=== PATIENT | female | born 1970 | race Caucasian/White ===

== ENCOUNTER 2018-07-30 10:54 | Day surgery (SDC) | payer BC ==
[~2018-07-30 10:54] MED LIST: Lactated Ringers 1,000 ML IV SCH; Lidocaine 4% 5 ML Amp ONE; Sodium Chloride 0.9% 10 ML Syringe FLUSH PRN
[2018-07-30] MEDS ORDERED: fentaNYL 100 MCG/2 ML SDV ONE (12:10)
[2018-07-30] MEDS ORDERED: Midazolam 1 MG/ML 2 ML SDV ONE (12:10)
[2018-07-30] MEDS ORDERED: Propofol 200 MG/20 ML SDV ONE (12:10)
--- NOTE | 2018-07-30 13:26 | OR ---
PREOPERATIVE DIAGNOSES: 1. Dysphagia. 2. Abdominal pain. POSTOPERATIVE DIAGNOSES: 1. Gastritis with mild petechial hemorrhage. 2. Mild gastroesophageal reflux disease without hiatal hernia or stenosis. PROCEDURE PROPOSED: Upper gastrointestinal panendoscopy with antral biopsies. INDICATIONS: This is a 47-year-old female bothered with some dysphagia, but mainly upper throat dysphagia and some abdominal pain. It was felt that she should be gastroscoped to rule out significant pathology. TECHNIQUE: The patient was brought to the endoscopy suite and placed in left lateral decubitus position. The intraoral bite block was put in position, and she was sedated per ORAL HYGIENIST with propofol. The flexible video gastroscope was then passed transorally and under visualization as well into the duodenum. The distal duodenum was normal, but the duodenal bulb revealed some duodenitis. The antrum also revealed some moderate inflammation with some petechial hemorrhage. There was no yoana ulceration, however. The body of the stomach looked quite normal and healthy. A couple of antral biopsies were taken to rule out H. pylori. The GE junction did not reveal any evidence of hiatal hernia or Schatzki's ring, but she did have some mild GERD present right at the junction itself without any signs of Tay esophagus and the remainder of esophagus was normal. The scope was then withdrawn. The patient tolerated the procedure well. FINAL IMPRESSION: 1. Mild gastroesophageal reflux disease without Tay's or stenosis. 2. Antritis with petechial hemorrhage without ulcer. PLAN: I feel the patient needs to be on Protonix 40 mg daily. She needs to avoid caffeine, alcohol, ibuprofen, aspirin, and I do feel her swallowing symptoms in the upper throat will dissipate as her hyperacidity is controlled. SCM: 07/30/2018 12:43:55 MODL: 07/30/2018 13:07:34 /[id number]
[2018-07-30 13:29] VITALS: BP 101/64
== END 2018-07-30 13:51 | disposition home or self-care (01) ==
LOC: VM.SDS 10:54
PROVIDERS: ATTEND Surgery
DX: K29.71 Gastritis, unspecified, with bleeding (principal); K21.9 Gastro-esophageal reflux disease without esophagitis; D64.9 Anemia, unspecified; F17.210 Nicotine dependence, cigarettes, uncomplicated; K58.9 Irritable bowel syndrome, unspecified; J30.2 Other seasonal allergic rhinitis; M47.9 Spondylosis, unspecified; M35.00 Sjogren syndrome, unspecified; R47.02 Dysphasia; Z88.6 Allergy status to analgesic agent; Z88.8 Allergy status to other drugs, medicaments and biological substances; Z79.899 Other long term (current) drug therapy; Z91.011 Allergy to milk products
CPT/HCPCS: 43239; J2001; J2250; J2704; J3010; J7120

== ENCOUNTER 2019-05-13 08:36 | Emergency (ER) | payer BC ==
[2019-05-13] MEDS ORDERED: Sodium Chloride 0.9% 10 ML Syringe FLUSH PRN (09:04)
[2019-05-13] MEDS: Ondansetron 4 MG/2 ML SDV IVPUSH ONE ×2 (09:41→11:52)
[2019-05-13] MEDS: Sodium Chloride 0.9% 1,000 ML IV ONE ×2 (09:41→12:08)
[2019-05-13] MEDS: Morphine 4 MG/ML Syringe IVPUSH ONE ×2 (09:45→11:46)
[2019-05-13 10:07] LABS: CHLORIDE,CL 98 mmol/L (98-107); SODIUM,NA 140 mmol/L (136-145)
[2019-05-13 10:10] LABS: ANION GAP 16.7 mmol/L (10-20)
--- NOTE | 2019-05-13 10:44 | EDM.PDOC ---
ED HPI GENERAL MEDICAL PROBLEM - General Chief Complaint: Abdominal Pain Stated Complaint: Abdominal Pain Time Seen by Provider: 05/13/19 08:50 Source of Information: Reports: Patient History Limitations: Reports: No Limitations - History of Present Illness INITIAL COMMENTS - FREE TEXT/NARRATIVE: Pt. presents to ER with complaints of abdominal discomfort, cramping, lack of BM for 6 days, dysuria, and nausea/vomiting. Pt. has a history of possible seronegative Sjogren's, IBS, fibromyalgia, gastritis, and chronic fatigue. She has a history of constipation and chronic abdominal pain. She has felt chilled but has not been checking her temp. Pt. denies any chest pain or shortness of breath. No cough. No exposure to ill contacts. Denies any rashes. Pt. states that she did notice possibly a scant amount of blood in her stool with her last BM. Denies any large hematochezia, hematemesis, or melena. Onset Date: 05/07/19 Location: Reports: Abdomen Quality: Reports: Ache, Sharp Severity: Severe Associated Symptoms: Reports: Malaise, Nausea/Vomiting. Denies: Confusion, Chest Pain, Cough, cough w sputum, Diaphoresis, Rash, Shortness of Breath, Syncope, Weakness Abdominal Pain Pain Score (Numeric/FACES): 10 - Related Data Allergies Allergy/AdvReac Type Severity Reaction Status Date / Time hydroxyzine Allergy Severe Anaphylactic Verified 05/13/19 11:07 Shock phenazopyridine Allergy Severe Anaphylactic Verified 05/13/19 11:07 [From Pyridium] Shock lactose AdvReac Diarrhea Verified 05/13/19 11:07 seasonal AdvReac Headache Uncoded 05/13/19 11:07 Home Meds: Home Meds Cyclobenzaprine [Flexeril] 5 - 10 mg PO TID PRN 01/17/18 [History] Diazepam [Valium] 10 mg RECTAL Q6H PRN 01/17/18 [History] Gabapentin [Neurontin] 300 mg PO ASDIRECTED 01/17/18 [History] Hydroxychloroquine [Plaquenil] 200 mg PO ASDIRECTED 01/17/18 [History] SUMAtriptan Succinate [Imitrex] 100 mg PO ASDIRECTED PRN 01/17/18 [History] Dicyclomine [Bentyl] 20 mg PO Q6HR PRN 05/13/19 [History] Pantoprazole Sodium [Protonix] 40 mg PO DAILY 05/13/19 [History] Pilocarpine [Salagen] 5 mg PO BEDTIME 05/13/19 [History] ondansetron HCL [Ondansetron HCl] 4 mg PO Q6HR PRN 05/13/19 [History] Past Medical History HEENT History: Reports: Allergic Rhinitis Cardiovascular History: Reports: None Gastrointestinal History: Reports: Irritable Bowel Syndrome Other Genitourinary History: chronic pelvic pain. pelvic floor dysfunction. interstitial cystitis. bladder pain Musculoskeletal History: Reports: Arthritis, Neck Pain, Chronic, Osteoarthritis , Other (See Below) Other Musculoskeletal History: left knee pain. degenerative disc disease ( cervical and lumbar). internal derangement of left knee. cervical vertebral fusion. osteoarthritis of cervical and lumbar spine. Left upper arm cyst Other Neuro History: fibromyalgia Psychiatric History: Reports: Anxiety Other Psychiatric History: Anxiety with needles Other Immunologic History: sjogren's syndrome. Interstitial Cystitis Dermatologic History: Reports: Other (See Below) Other Dermatologic History: Left upper arm cyst - Past Surgical History HEENT Surgical History: Reports: Adenoidectomy, Tonsillectomy Cardiovascular Surgical History: Reports: None GI Surgical History: Reports: Appendectomy, Cholecystectomy Female Surgical History: Reports: Cystectomy, Cystoscopy, D&C, Hysterectomy, Oophorectomy, Other (See Below) Other Female Surgeries/Procedures: Breast augmentation. Laproscopy for scar tissue Neurological Surgical History: Reports: Spinal Fusion Other Neurological Surgeries/Procedures: interstim phase 1 and 2 Musculoskeletal Surgical History: Reports: Arthroscopic Procedure, Other (See Below) Other Musculoskeletal Surgeries/Procedures:: lumbar fusion. Implanted pulse generator for back pain. Cervical spine fusion ED [facility] - Review of Systems Review Of Systems: See Below Constitutional: Reports: No Symptoms HEENT: Reports: No Symptoms Respiratory: Reports: No Symptoms Cardiovascular: Reports: No Symptoms Endocrine: Reports: Fatigue GI/Abdominal: Reports: Abdominal Pain, Anorexia, Bloody Stool, Constipation, Decreased Appetite, Distension, Nausea, Vomiting. Denies: Hematemesis, Hematochezia, Melena : Reports: Dysuria, Frequency. Denies: Flank Pain Musculoskeletal: Reports: Arm Pain, Leg Pain, Joint Pain, Other (chronic extremity/joint pain) Skin: Reports: No Symptoms Neurological: Reports: No Symptoms Psychiatric: Reports: No Symptoms Hematologic/Lymphatic: Reports: No Symptoms Immunologic: Reports: Other (see above.) ED EXAM, GENERAL - Physical Exam Exam: See Below Exam Limited By: No Limitations General Appearance: Alert, WD/WN, No Apparent Distress Eye Exam: Bilateral Eye: EOMI, PERRL Nose: Normal Inspection, Normal Mucosa, No Blood Throat/Mouth: Normal Inspection, Normal Lips, Normal Teeth, Normal Gums, Normal Oropharynx, Normal Voice, No Airway Compromise Head: Atraumatic, Normocephalic Neck: Normal Inspection, Supple, Non-Tender, Full Range of Motion Respiratory/Chest: No Respiratory Distress, Lungs Clear, Normal Breath Sounds, No Accessory Muscle Use, Chest Non-Tender Cardiovascular: Normal Peripheral Pulses, Regular Rate, Rhythm, No Edema, No Gallop, No JVD, No Murmur, No Rub Peripheral Pulses: 4+: Radial (R) GI/Abdominal: Soft, No Distention, No Mass, Distended, Guarding, Tender, Other ( Bowel sounds diminished) (Female) Exam: Deferred Rectal (Female) Exam: Deferred Back Exam: Normal Inspection, Full Range of Motion Extremities: Normal Inspection, Normal Range of Motion, Non-Tender, No Pedal Edema, Normal Capillary Refill Neurological: Alert, Oriented, CN II-XII Intact, Normal Cognition, Normal Gait, Normal Reflexes, No Motor/Sensory Deficits Psychiatric: Normal Affect, Normal Mood Skin Exam: Warm, Dry, Intact, Normal Color, No Rash Lymphatic: No Adenopathy Course - Vital Signs Last Recorded V/S: Last Vital Signs Temp 37.1 C 05/13/19 11:28 Pulse 84 05/13/19 11:28 Resp 16 05/13/19 11:28 BP 117/67 05/13/19 11:28 Pulse Ox 98 05/13/19 11:28 - Orders/Labs/Meds Orders: Active Orders 24 hr Category Date Time Status Abdomen Pelvis w Cont [CT] Stat Exams 05/13/19 10:52 Ordered Sodium Chloride 0.9% [Normal Saline] 1,000 ml Med 05/13/19 11:59 Ordered IV .BOLUS Sodium Chloride 0.9% [Saline Flush] Med 05/13/19 09:04 Ordered 10 ml FLUSH ASDIRECTED PRN Peripheral IV Insertion Adult [OM.PC] Routine Oth 05/13/19 09:05 Ordered Medication Orders Sodium Chloride (Normal Saline) 1,000 mls @ 1,000 mls/hr IV .BOLUS ONE Stop: 05/13/19 12:58 Sodium Chloride (Saline Flush) 10 ml FLUSH ASDIRECTED PRN PRN Reason: Keep Vein Open Labs: Laboratory Tests 05/13/19 05/13/19 05/13/19 Range/Units 09:38 09:38 09:38 WBC 5.1 (4.0-10.0) x10^3/uL RBC 5.94 H (4.00-5.50) x10^6/uL Hgb 18.1 H (12.0-16.0) g/dL Hct 52.2 H (33.0-47.0) % MCV 87.9 (78.0-93.0) fL MCH 30.5 (26.0-32.0) pg MCHC 34.7 (32.0-36.0) g/dL RDW Coeff of Dean 13.0 (10.0-15.0) % Plt Count 264 (130-400) x10^3/uL Neut % (Auto) 69.0 (50.0-80.0) % Lymph % (Auto) 15.4 L (25.0-50.0) % [place] % (Auto) 15.4 H (2.0-11.0) % Eos % (Auto) 0.0 (0.0-4.0) % Baso % (Auto) 0.2 (0.2-1.2) % Add Manual Diff PT 11.8 (10.0-12.8) SEC INR 1.0 L (2.0-3.5) Sodium 140 (136-145) mmol/L Potassium 3.7 (3.5-5.1) mmol/L Chloride 98 (98-107) mmol/L Carbon Dioxide 29 (21-32) mmol/L Anion Gap 16.7 (10-20) mmol/L BUN 46 H (7-18) mg/dL Creatinine 1.2 H (0.55-1.02) mg/dL Est Cr Clr Drug Dosing TNP Estimated GFR (MDRD) 48 Glucose 116 H (74-106) mg/dL Calcium 9.2 (8.5-10.1) mg/dL Corrected Calcium 9.20 (8.5-10.1) mg/dL Magnesium 2.2 (1.8-2.4) mg/dL Total Bilirubin 1.2 H (0.2-1.0) mg/dL AST 113 H (15-37) U/L ALT 331 H (14-59) U/L Alkaline Phosphatase 94 (46-116) U/L C-Reactive Protein 4.6 H (<=0.9) mg/dL Total Protein 7.9 (6.4-8.2) g/dL Albumin 4.0 (3.4-5.0) g/dL Globulin 3.9 Albumin/Globulin Ratio 1.03 Amylase 61 (25-115) U/L Lipase 52 L (73-393) U/L Urine Color (YELLOW) Urine Appearance (CLEAR) Urine pH (5.0-8.0) Ur Specific [place] Urine Protein (NEGATIVE) mg/dL Urine Glucose (UA) (NEGATIVE) mg/dL Urine Ketones (NEGATIVE) mg/dL Urine Occult Blood (NEGATIVE) Urine Nitrite (NEGATIVE) Urine Bilirubin (NEGATIVE) Urine Urobilinogen (0.2) EU/dL Ur Leukocyte Esterase (NEGATIVE) U Hyaline Cast (Auto) Urine RBC (NOT SEEN) /HPF Urine WBC (NOT SEEN) /HPF Ur Squamous Epith Cells (NEGATIVE) /HPF Urine Bacteria (NEGATIVE) /HPF Urine Mucus (NEGATIVE) /LPF 05/13/19 Range/Units 10:30 WBC (4.0-10.0) x10^3/uL RBC (4.00-5.50) x10^6/uL Hgb (12.0-16.0) g/dL Hct (33.0-47.0) % MCV (78.0-93.0) fL MCH (26.0-32.0) pg MCHC (32.0-36.0) g/dL RDW Coeff of Dean (10.0-15.0) % Plt Count (130-400) x10^3/uL Neut % (Auto) (50.0-80.0) % Lymph % (Auto) (25.0-50.0) % [place] % (Auto) (2.0-11.0) % Eos % (Auto) (0.0-4.0) % Baso % (Auto) (0.2-1.2) % Add Manual Diff PT (10.0-12.8) SEC INR (2.0-3.5) Sodium (136-145) mmol/L Potassium (3.5-5.1) mmol/L Chloride (98-107) mmol/L Carbon Dioxide (21-32) mmol/L Anion Gap (10-20) mmol/L BUN (7-18) mg/dL Creatinine (0.55-1.02) mg/dL Est Cr Clr Drug Dosing Estimated GFR (MDRD) Glucose (74-106) mg/dL Calcium (8.5-10.1) mg/dL Corrected Calcium (8.5-10.1) mg/dL Magnesium (1.8-2.4) mg/dL Total Bilirubin (0.2-1.0) mg/dL AST (15-37) U/L ALT (14-59) U/L Alkaline Phosphatase (46-116) U/L C-Reactive Protein (<=0.9) mg/dL Total Protein (6.4-8.2) g/dL Albumin (3.4-5.0) g/dL Globulin Albumin/Globulin Ratio Amylase (25-115) U/L Lipase (73-393) U/L Urine Color Karen H (YELLOW) Urine Appearance Slightly cloudy H (CLEAR) Urine pH 5.0 (5.0-8.0) Ur Specific [place] >=1.030 Urine Protein 30 H (NEGATIVE) mg/dL Urine Glucose (UA) Negative (NEGATIVE) mg/dL Urine Ketones 40 H (NEGATIVE) mg/dL Urine Occult Blood Trace-lysed H (NEGATIVE) Urine Nitrite Negative (NEGATIVE) Urine Bilirubin Moderate H (NEGATIVE) Urine Urobilinogen 1.0 (0.2) EU/dL Ur Leukocyte Esterase Negative (NEGATIVE) U Hyaline Cast (Auto) Moderate Urine RBC 0-5 (NOT SEEN) /HPF Urine WBC 0-5 (NOT SEEN) /HPF Ur Squamous Epith Cells Few H (NEGATIVE) /HPF Urine Bacteria Few H (NEGATIVE) /HPF Urine Mucus Many H (NEGATIVE) /LPF Meds: Medications Generic Name Dose Route Start Last Admin Trade Name Freq PRN Reason Stop Dose Admin Sodium Chloride 1,000 mls @ 1,000 mls/hr 05/13/19 11:59 Normal Saline IV 05/13/19 12:58 .BOLUS ONE Sodium Chloride 10 ml 05/13/19 09:04 Saline Flush FLUSH ASDIRECTED PRN Keep Vein Open Discontinued Medications Generic Name Dose Route Start Last Admin Trade Name Freq PRN Reason Stop Dose Admin Sodium Chloride 1,000 mls @ 1,000 mls/hr 05/13/19 09:07 05/13/19 09:41 Normal Saline IV 05/13/19 10:06 1,000 mls/hr .BOLUS ONE Administration Iopamidol 100 ml 05/13/19 10:54 05/13/19 11:33 Isovue-300 (61%) IVPUSH 05/13/19 10:55 100 ml ONETIME ONE Administration Morphine Sulfate 4 mg 05/13/19 09:07 05/13/19 09:45 Morphine IVPUSH 05/13/19 09:08 4 mg ONETIME ONE Administration Morphine Sulfate 4 mg 05/13/19 11:29 05/13/19 11:46 Morphine IVPUSH 05/13/19 11:30 4 mg ONETIME ONE Administration Ondansetron HCl 4 mg 05/13/19 09:07 05/13/19 09:41 Zofran IVPUSH 05/13/19 09:08 4 mg ONETIME ONE Administration Ondansetron HCl 4 mg 05/13/19 11:49 05/13/19 11:52 Zofran IVPUSH 05/13/19 11:50 4 mg ONETIME ONE Administration Departure - Departure Time of Disposition: 12:00 Disposition: DC/Tfer to Acute Hospital 02 Clinical Impression: Bowel obstruction - Discharge Information Referrals: Meena Rodriguez MD [Primary Care Provider] - Forms: ED Department Discharge, Interfacility Transfer [facility] Sepsis Event Note - Focused Exam Vital Signs: Vital Signs Temp Pulse Resp BP Pulse Ox 05/13/19 11:28 37.1 C 84 16 117/67 98 05/13/19 08:45 35.9 C L 104 H 16 116/79 99 Date Exam was Performed: 05/13/19 Time Exam was Performed: 12:02 - Problem List Review Problem List Initiated/Reviewed/Updated: Yes - My Orders Last 24 Hours: My Active Orders 05/13/19 09:04 Sodium Chloride 0.9% [Saline Flush] 10 ml FLUSH ASDIRECTED PRN 05/13/19 09:05 Peripheral IV Insertion Adult [OM.PC] Routine 05/13/19 10:52 Abdomen Pelvis w Cont [CT] Stat 05/13/19 11:59 Sodium Chloride 0.9% [Normal Saline] 1,000 ml IV .BOLUS - Assessment/Plan Last 24 Hours: My Active Orders 05/13/19 09:04 Sodium Chloride 0.9% [Saline Flush] 10 ml FLUSH ASDIRECTED PRN 05/13/19 09:05 Peripheral IV Insertion Adult [OM.PC] Routine 05/13/19 10:52 Abdomen Pelvis w Cont [CT] Stat 05/13/19 11:59 Sodium Chloride 0.9% [Normal Saline] 1,000 ml IV .BOLUS Plan: Pt. will be transferred to [facility]. Dr. Kat is accepting. Pt. will be transported via [facility] ground ambulance. She can have morphine or dilaudid enroute for pain control. Continue IV NS at 100ml/hr. Had one liter during her stay in ED.
--- NOTE | 2019-05-13 11:10 | CR ---
[id number] RAD/RAD Abd Flat and Upright 2V EXAM: RAD Abd Flat and Upright 2V INDICATION: ABDOMINAL PAIN. COMPARISON: November 05, 2018. DISCUSSION: Dilated and distended loops of small bowel throughout the abdomen measuring up to 62 mm in diameter. Findings are consistent with some degree of small bowel obstruction. Findings were not seen on examination from November 05, 2018. Consider surgical consultation for further evaluation. IMPRESSION: Small bowel obstruction. Moises Apple MD 05/13/19 [id number] Thank you for allowing us to participate in the care of your patient.
[2019-05-13 11:29] VITALS: BP 117/67; PULSE 84
[2019-05-13] MEDS: Iopamidol 612 MG/ML 100 ML Bottle IVPUSH ONE (11:33)
--- NOTE | 2019-05-13 12:07 | CT ---
[id number] CT/CT Abdomen Pelvis W IV EXAM: CT Abdomen Pelvis W IV CLINICAL DATA: ABDOMINAL PAIN/POSITIVE AIR FLUID LEVELS. COMPARISON STUDY: Radiograph from today. FINDINGS: Dilated, distended, and fluid-filled loops of small bowel throughout the abdomen. Diameter measures up to 37 mm. There is transition to decompressed small bowel in the pelvis seen on series 2 images 96-102 and sagittal series 4 image 46. Small bowel distal to this transition is decompressed to the ileocecal valve. Small amount of free fluid interposed between the abnormal loops of dilated bowel as well as layering dependently in the pelvis. Findings are consistent with high-grade distal small bowel obstruction with possible early changes of ischemia. Gallbladder has been resected. Liver, spleen, pancreas, adrenal glands, and kidneys are unremarkable. Urinary bladder is unremarkable. Uterus has been resected. Adnexal regions are unremarkable. Postsurgical change from decompression and fusion at L4-S1. Hardware intact. IMPRESSION: High-grade small bowel obstruction with transition point in the pelvis, described above. Free fluid interposed between the abnormal loops of bowel suggests early changes of ischemia. Surgical consultation recommended. Moises Apple MD 05/13/19 [id number] Thank you for allowing us to participate in the care of your patient.
== END 2019-05-13 12:30 | disposition short-term general hospital (02) ==
LOC: SUPCPDRO 08:36 → VM.ED 08:47
DX: K56.609 Unspecified intestinal obstruction, unspecified as to partial versus complete obstruction (principal); F41.9 Anxiety disorder, unspecified; Z79.899 Other long term (current) drug therapy; Z88.8 Allergy status to other drugs, medicaments and biological substances; Z91.011 Allergy to milk products
CPT/HCPCS: 74019; 74177; 80053; 81001; 82150; 83690; 83735; 85025; 85610; 86140; 96361; 96374; 96375; 96376; 99285-25; J2270; J2405; J7030; Q9967

== ENCOUNTER 2024-05-29 11:14 | Emergency (ER) | payer BC ==
[2024-05-29 11:26] VITALS: BP 117/63; PULSE 87
== END 2024-05-29 11:41 | disposition home or self-care (01) ==
LOC: SUPCPDRO 11:14 → VM.ED 11:14
DX: S93.402A Sprain of unspecified ligament of left ankle, initial encounter (principal); Z88.8 Allergy status to other drugs, medicaments and biological substances; Z91.011 Allergy to milk products; Z79.899 Other long term (current) drug therapy; Z90.49 Acquired absence of other specified parts of digestive tract; X50.1XXA Overexertion from prolonged static or awkward postures, initial encounter
CPT/HCPCS: 73610-LT; 99283